=== PATIENT | female | born 1995 | race Caucasian/White ===

== ENCOUNTER 2016-06-30 02:42 | Emergency (ER) | payer OTHER ==
[2016-06-30] MEDS ORDERED: KETOROLAC 60 MG/2 ML VIAL IM STA (03:02)
[2016-06-30] MEDS ORDERED: CYCLOBENZAPRINE 10 MG TABLET PO STA (03:02)
[2016-06-30] MEDS ORDERED: KETOROLAC 60 MG/2 ML VIAL ONE (03:04)
[2016-06-30] MEDS ORDERED: CYCLOBENZAPRINE 10 MG TABLET PO ONE (03:04)
== END 2016-06-30 04:43 | disposition home or self-care (01) ==
DX: M62.830 Muscle spasm of back (principal); M54.5 Low back pain
CPT/HCPCS: 72110; 72202; 96372; 99283; A9270

== ENCOUNTER 2016-11-03 07:16 | Outpatient (CLI) | payer OTHER ==
--- NOTE | 2016-11-03 16:50 | CT Report ---
CT PARANASAL SINUSES WITHOUT CONTRAST: 11/03/2016 CLINICAL INDICATION: Chronic sinusitis. Axial CT images of the paranasal sinuses were obtained without contrast. In accordance with CT protocol optimization, one or more of the following dose reduction techniques w ere utilized for this exam: automated exposure control, adjustment of mA and/or KV based on patient size, or use of iterative reconstructive technique. No previous CT is available for comparison. There is a mucous retention cyst or polyp in the inferior portion of the right maxillary sinus. Othe rwise, the paranasal sinuses are clear. The ostiomeatal units are patent bilaterally. The nasal sep jacquelyn is midline. No osseous destruction is seen. The visualized orbital contents are unremarkable. IMPRESSION: MUCOUS RETENTION CYST OR POLYP IN THE RIGHT MAXILLARY SINUS. JOB #: [id number] EXT JOB #:[id number]
== END 2016-11-03 07:17 | disposition home or self-care (01) ==
LOC: DI 07:16
PROVIDERS: ATTEND Otolaryngology
DX: R93.0 Abnormal findings on diagnostic imaging of skull and head, not elsewhere classified (principal)
CPT/HCPCS: 36415; 70486; 84703; 86803

== ENCOUNTER 2017-05-11 13:10 | Emergency (ER) | payer OTHER ==
[2017-05-11] MEDS ORDERED: LIDOCAINE VISCOUS 2% 15 ML UDC MM STA (13:43)
[2017-05-11] MEDS ORDERED: MAG HYDROX/AL HYDROX/SIMETH 30 ML UDC PO STA (13:43)
[2017-05-11 14:04] LABS: BASOPHILS % (AUTO) 0.3 %; EOSINOPHILS # (AUTO) 0.1 10^3/uL (0.0-0.7); EOSINOPHILS % (AUTO) 0.5 %; HGB - HEMOGLOBIN 14.7 g/dL (12.0-16.0); LYMPHOCYTES # (AUTO) 1.8 10^3/uL (1.5-3.5); LYMPHOCYTES % (AUTO) 16.3 %; MEAN CORPUSCULAR HEMOGLOBIN 28.8 pg (27.0-31.0); MEAN CORPUSCULAR HGB CONC 34.7 g/dL (32.0-36.0); MEAN PLATELET VOLUME 7.9 fL (7.9-10.8); MONOCYTES # (AUTO) 0.5 10^3/uL (0.0-1.0); MONOCYTES % (AUTO) 4.5 %; NEUTROPHILS # (AUTO) 8.5 10^3/uL (1.5-6.6); NEUTROPHILS % (AUTO) 78.4 %; PLT - PLATELET COUNT 272 10^3/uL (130-450); RED BLOOD COUNT 5.09 10^6/uL (4.20-5.40); RED CELL DISTRIBUTION WIDTH 13.4 % (12.0-15.0); WHITE BLOOD COUNT 10.8 x10^3/uL (4.8-10.8)
--- NOTE | 2017-05-11 14:05 | ED Physician Documentation ---
PD HPI ABD PAIN - Stated complaint Stated Complaint: SIDE/ABD PX - Chief complaint Chief Complaint: Abd Pain - History obtained from History obtained from: Patient, Friend - History of Present Illness Timing - onset: Enter time (299), Today Timing - duration: Hours Timing - details: Abrupt onset, Still present, Still present in ED Quality: Aching, Sharp, Pain Location: RUQ Radiation: Upper back Improved by: Laying still Worsened by: Moving, Breathing, Position, Palpation Associated symptoms: Nausea, Vomiting Similar symptoms before: Diagnosis (gastritis) Recently seen: Not recently seen - Additional information Additional information: 31-year-old female who is had a history of gastritis has abdominal pain after eating frequently and last night she had pain that started about 3 AM with severe and radiated to her back.She has some right upper quadrant pain that is worse with inspiration. She has had this happen to her a number of times previously and she has been evaluated by GI. She has had upper and lower GI scoping she has had ultrasound of her gallbladder and she has been diagnosed with gastritis. She was recently moved to the area and has not established care with her new physician. Review of Systems Constitutional: reports: Sweats. denies: Fever Eyes: denies: Decreased vision Ears: denies: Ear pain Nose: denies: Rhinorrhea / runny nose, Congestion Throat: denies: Sore throat Cardiac: reports: Chest pain / pressure. denies: Palpitations Respiratory: denies: Dyspnea, Cough GI: reports: Abdominal Pain, Abdominal Swelling, Nausea. 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 : None HEENT: None Psych: None Musculoskeletal: Chronic back pain Derm: None - Past Surgical History Past Surgical History: Yes General: Other - Present Medications Home Medications: Ambulatory Orders Medication Instructions Recorded Confirmed Cyclobenzaprine [Flexeril] 10 mg PO TID PRN #10 tablet 06/30/16 Ibuprofen 800 mg PO Q8HR 06/30/16 06/30/16 Sucralfate [Carafate] 1 gm PO ACHS #40 tablet 05/11/17 - Allergies Allergies/Adverse Reactions: Allergies Allergy/AdvReac Type Severity Reaction Status Date / Time CRESCENCIO AdvReac Respiratory Uncoded 06/30/16 02:59 KETOPROFENE AdvReac Rash Uncoded 06/30/16 02:59 - Social History Does the pt smoke?: No Smoking Status: Never smoker Does the pt drink ETOH?: No Does the pt have substance abuse?: No - Immunizations Immunizations are current?: Yes - POLST Patient has POLST: No PD ED PE NORMAL - Vitals Vital signs reviewed: Yes (Tachycardic and hypertensive) - General General: Alert and oriented X 3, Well developed/nourished, Other (Patient appears to be in some pain with medical lab director tone and flattened affect and she seems to wince with breathing.) - HEENT HEENT: Atraumatic, PERRL, EOMI, Ears normal - Neck Neck: Supple, no meningeal sign, No bony TTP - Cardiac Cardiac: RRR, No murmur - Respiratory Respiratory: No respiratory distress, Clear bilaterally - Abdomen Abdomen: Soft, Other (Right upper quadrant tenderness to deep palpation specifically under the ribs laterally and in the epigastrium. 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, No motor deficit, No sensory deficit, Normal speech Eye Opening: Spontaneous Motor: Obeys Commands Verbal: Oriented GCS Score: 15 - Psych Psych: Normal mood Results - Vitals Vitals: Vital Signs - 24 hr 05/11/17 05/11/17 13:15 16:58 Temperature 36.7 C Heart Rate 115 H 91 Respiratory 18 20 Rate Blood Pressure 131/86 H 121/69 O2 Saturation 99 98 Oxygen O2 Source Room air - Labs Labs: Laboratory Tests 05/11/17 05/11/17 05/11/17 13:55 13:55 15:30 WBC 10.8 RBC 5.09 Hgb 14.7 Hct 42.2 MCV 83.0 MCH 28.8 MCHC 34.7 RDW 13.4 Plt Count 272 MPV 7.9 Neut # 8.5 H Lymph # 1.8 [place] # 0.5 Eos # 0.1 Baso # 0.0 Absolute Nucleated RBC 0.00 Nucleated RBC % 0.0 Sodium 136 Potassium 3.6 Chloride 105 Carbon Dioxide 24 Anion Gap 7.0 BUN 10 Creatinine 0.6 Estimated GFR (MDRD) 115 Glucose 110 H Calcium 9.6 Total Bilirubin 0.6 AST 22 ALT 13 Alkaline Phosphatase 108 Total Protein 8.5 H Albumin 4.4 Globulin 4.1 Albumin/Globulin Ratio 1.1 Lipase 17 L Urine Color YELLOW Urine Clarity CLEAR Urine pH 6.5 Ur Specific [place] 1.010 Urine Protein NEGATIVE Urine Glucose (UA) NEGATIVE Urine Ketones NEGATIVE Urine Occult Blood MODERATE H Urine Nitrite NEGATIVE Urine Bilirubin NEGATIVE Urine Urobilinogen 0.2 (NORMAL) Ur Leukocyte Esterase NEGATIVE Urine RBC 0-5 Urine WBC 0-3 Ur Squamous Epith Cells FEW Squamous Urine Bacteria None Seen Ur Microscopic Review INDICATED Urine Culture Comments NOT INDICATED Urine HCG, Qual NEGATIVE - Rads (name of study) Gallbladder ultrasound Radiology: Prelim report reviewed (Normal), EMP read indepedently, See rad report Procedures - Bedside sono Bedside sono by EMP: These bedside ultrasound the gallbladder is imaged there are no obvious stones and no pericholecystic fluid. The gallbladder is compressed with the probe resulting in tender and reproduction of the symptoms the patient is experiencing. PD MEDICAL DECISION MAKING - ED course Complexity details: reviewed results, re-evaluated patient, considered differential, d/w patient, d/w family ED course: 31-year-old female is evaluated for abdominal pain that is in the epigastrium and the right upper quadrant. She has had prior ultrasound of the gallbladder and these have been negative. On the bedside ultrasound there is no obvious stone. She does have a tender gallbladder. White blood cell count is normal and formal gallbladder ultrasound is normal as well. The patient is administered a GI cocktail of viscous lidocaine and Mylanta with improvement in her symptoms. I have added in Carafate to her regimen and recommended she take this for at least 10 days and I have recommended that she get a HIDA scan which can be ordered as an outpatient by her primary care doctor. Departure - Departure Disposition: 01 Home, Self Care Clinical Impression: Gastritis Qualifiers: Gastritis type: unspecified gastritis Chronicity: acute Gastritis bleeding: without bleeding Qualified Code(s): K29.00 - Acute gastritis without bleeding Condition: Stable Instructions: ED PUD Vs Gastritis Follow-Up: Wan Fernando DO [Primary Care Provider] - Prescriptions: Sucralfate [Carafate] 1 gm PO ACHS #40 tablet Comments: Today it appears your symptoms are related to your gastritis and there is a question about the function of your gallbladder follow-up with Dr. Fernando and schedule a HIDA scan. Discharge Date/Time: 05/11/17 17:04
[2017-05-11 14:25] LABS: ALBUMIN 4.4 g/dL (3.2-5.5); ALBUMIN/GLOBULIN RATIO 1.1 (1.0-2.2); BILIRUBIN,TOTAL 0.6 mg/dL (0.2-1.0); CALCIUM 9.6 mg/dL (8.5-10.3); CREATININE 0.6 mg/dL (0.4-1.0); TOTAL PROTEIN 8.5 g/dL (6.7-8.2)
[2017-05-11 15:44] LABS: BILIRUBIN,URINE NEGATIVE (NEGATIVE); GLUCOSE, URINE (UA) NEGATIVE (NEGATIVE); KETONES,URINE (UA) NEGATIVE (NEGATIVE); LEUKOCYTE ESTERASE, URINE NEGATIVE (NEGATIVE); NITRITE,URINE NEGATIVE (NEGATIVE); OCCULT BLOOD,URINE MODERATE (NEGATIVE); PH,URINE 6.5 PH (5.0-7.5); PROTEIN,URINE NEGATIVE (NEGATIVE); UROBILINOGEN,URINE 0.2 (NORMAL) E.U./dL (NORMAL)
[2017-05-11 15:47] LABS: CLARITY,URINE CLEAR (CLEAR); HCG UR QUAL NEGATIVE
[2017-05-11 16:20] LABS: BACTERIA,URINE None Seen /HPF (None Seen); RBC,URINE 0-5 /HPF (0-5); SQUAMOUS EPITHELIAL CELL,UR FEW Squamous (<= Few)
[2017-05-11 17:00] VITALS: BP 121/69
--- NOTE | 2017-05-11 18:26 | Ultrasound Report ---
RIGHT UPPER QUADRANT ULTRASOUND: 05/11/2017 CLINICAL INDICATION: Right upper quadrant pain. TECHNIQUE: Real-time scanning was performed with advertising representative static images obtained. FINDINGS: The liver measures 19 cm. Hepatic echogenicity is normal. No intrahepatic biliary dilatation or focal parenchymal lesion is present. The common bile duct measures 4 mm. The gallbladder is normal. The right kidney measures 12.5 cm, and demonstrates no hydronephrosis. No free fluid is present. IMPRESSION: NORMAL RIGHT UPPER QUADRANT ULTRASOUND. TD: 05/11/2017 18:24
== END 2017-05-11 17:04 | disposition home or self-care (01) ==
LOC: ED 13:10
DX: K29.00 Acute gastritis without bleeding (principal)
CPT/HCPCS: 36415; 76705; 80053; 81001; 81025; 83690; 85025; 99283; 99284; A9270; 81003; 87086

== ENCOUNTER 2017-05-26 08:25 | Outpatient (CLI) | payer OTHER ==
[2017-05-26] MEDS ORDERED: SINCALIDE 5 MCG VIAL ONE (09:45)
[2017-05-26] MEDS ORDERED: SINCALIDE 2.2 MCG in SODIUM CHLORIDE 0.9% 50 ML IV ONE (10:22)
--- NOTE | 2017-05-26 16:31 | Nuclear Medicine Report ---
EXAM: HEPATOBILIARY SCAN WITH CCK/KINEVAC ADMINISTRATION EXAM DATE: 05/26/2017 11:34 AM. CLINICAL HISTORY: GASTRO ESOPHAGEAL REFLUX DISEASE W/O ESOPHAGITIS. COMPARISON: 05/11/2017. TECHNIQUE: Following the intravenous administration of 5.1 mCi of Tc99m Mebrofenin, a hepatobiliary s can was done centered on the liver and gallbladder in multiple sequential images and projections. Following the intravenous administration of 2.2 mcg of CCK/ Kinevac over the course of approximately 60 minutes, dynamic imaging was done and the gallbladder ejection fraction was calculated. FINDINGS: Normal extraction of tracer from the blood pool indicating normal hepatocellular function. The liver size and shape is grossly within normal limits. There is activity visualized within the bilateral legs, gallbladder, and small bowel within the first hour. With CCK administration, the gallbladder demonstrates an effective contraction. The gallbladder eject ion fraction is calculated to be 100%, well above the lower limit of normal of 38% for a 60-minute in jection. The patient did not report symptoms after CCK administration. No evidence of enteric reflux into the stomach. No significant collection of tracer remaining in the common bile duct by the end of the study. IMPRESSION: 1. Patent cystic duct. 2. Patent common bile duct. 3. Negative for acute or chronic cholecystitis. 4. No enterogastric bile reflux. 5. Gallbladder ejection fraction of 100%. TIANNAA Referring Provider Line: [phone] SITE ID: [id number]
== END 2017-05-26 08:26 | disposition home or self-care (01) ==
LOC: DI 08:25
DX: K21.9 Gastro-esophageal reflux disease without esophagitis (principal)
CPT/HCPCS: 78227; A9537; J7040

== ENCOUNTER 2017-06-18 08:00 | Outpatient (CLI) | payer OTHER | END 2017-06-18 08:01 | disposition home or self-care (01) | LOC: LAB.R 08:00 | PROVIDERS: ATTEND Internal Medicine Gastroenterology | DX: R19.7 Diarrhea, unspecified (principal); R19.5 Other fecal abnormalities | CPT/HCPCS: 83993 ==

== ENCOUNTER 2017-06-29 17:43 | Outpatient (CLI) | payer OTHER ==
--- NOTE | 2017-06-29 18:40 | XRAY Report ---
EXAM: ABDOMEN RADIOGRAPHY EXAM DATE: 06/29/2017 06:05 PM. CLINICAL HISTORY: Swallowed capsule endoscopy 06/24/2017 and has not passed yet. Diarrhea. COMPARISON: None. TECHNIQUE: 2 views. FINDINGS: Lung Bases: Unremarkable. Bowel Gas Pattern: Within normal limits. No dilated loops or abnormal fluid levels. No excessive stoo l. Free Air: None. Other: No metallic foreign body identified. IMPRESSION: Normal 2-view abdomen x-ray. [facility] Referring Provider Line: [phone] SITE ID: [id number]
== END 2017-06-29 17:44 | disposition home or self-care (01) ==
LOC: DI 17:43
PROVIDERS: ATTEND Internal Medicine Gastroenterology
DX: R19.7 Diarrhea, unspecified (principal)
CPT/HCPCS: 74019

== ENCOUNTER 2018-06-16 10:14 | Emergency (ER) | payer OTHER ==
--- NOTE | 2018-06-16 10:38 | ED Physician Documentation ---
PD HPI HEENT - Stated complaint Stated Complaint: FEVER,SORE THROAT, SOA - Chief complaint Chief Complaint: Heent - History obtained from History obtained from: Patient - History of Present Illness Timing - onset: How many days ago (5) Timing - duration: Days (5) Timing - details: Gradual onset, Still present Location: Right ear, Left ear, Throat Improves: Medication Worsens: Swalllowing Associated symptoms: Fever, Congestion, Rhinorrhea, Swollen nodes, Headache, Cough Similar symptoms before: Diagnosis (strep) Recently seen: Clinic - Additional information Additional information: 32-year-old female has developed a cough congestion fever and sore throat. She has had some muscle aches and pains as well. She was seen by her primary care doctor when this initially occurred diagnosed with a viral infection she has had improvement her symptoms and then worsening again. She has had some wheezing and shortness of breath as well. Review of Systems Constitutional: reports: Fever, Chills, Myalgias Eyes: denies: Decreased vision Ears: reports: Ear pain Nose: reports: Rhinorrhea / runny nose, Congestion Throat: reports: Sore throat Cardiac: denies: Chest pain / pressure, Palpitations Respiratory: reports: Dyspnea, Cough, Wheezing GI: denies: Abdominal Pain, Nausea, Vomiting : denies: Dysuria, Frequency Skin: denies: Rash, Lesions Musculoskeletal: denies: Neck pain, Back pain, Extremity pain PD PAST MEDICAL HISTORY - Past Medical History Past Medical History: No Cardiovascular: None Respiratory: None Neuro: None Endocrine/Autoimmune: None GI: 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 : None HEENT: None Psych: None Musculoskeletal: None Derm: None - Past Surgical History Past Surgical History: Yes General: Other HEENT: Tonsil/Adenoidectomy - Present Medications Home Medications: Ambulatory Orders Medication Instructions Recorded Confirmed Cyclobenzaprine [Flexeril] 10 mg PO TID PRN #10 tablet 06/30/16 Ibuprofen 800 mg PO Q8HR 06/30/16 06/30/16 Sucralfate [Carafate] 1 gm PO ACHS #40 tablet 05/11/17 Albuterol Sulf [Ventolin Hfa 1 - 2 puffs INH Q4HR PRN #1 inhaler 06/16/18 Inhaler] Amox/Clav 875/125 [Augmentin] 1 each PO Q12H #20 tablet 06/16/18 - Allergies Allergies/Adverse Reactions: Allergies Allergy/AdvReac Type Severity Reaction Status Date / Time aspirin Allergy Unknown Verified 06/16/18 10:22 ibuprofen Allergy Unknown Verified 06/16/18 10:22 AULIN AdvReac Respiratory Uncoded 06/30/16 02:59 KETOPROFENE AdvReac Rash Uncoded 06/30/16 02:59 - Social History Does the pt smoke?: No Smoking Status: Never smoker Does the pt drink ETOH?: No Does the pt have substance abuse?: No - Immunizations Immunizations are current?: No - POLST Patient has POLST: No PD ED PE NORMAL - Vitals Vital signs reviewed: Yes (tachy and hypertensive) - General General: Alert and oriented X 3, No acute distress, Well developed/nourished - HEENT HEENT: Atraumatic, PERRL, EOMI, Other (There is inflamation in the left TM with rounding of the landmarks. There is no siginifcant inflamation to the right TM which is retracted. The pharynx is with inflamation to the residual tonsillar tissue on the right side. 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, No motor deficit, No sensory deficit, Normal speech Eye Opening: Spontaneous Motor: Obeys Commands Verbal: Oriented GCS Score: 15 - Psych Psych: Normal mood, Normal affect Results - Vitals Vitals: Vital Signs - 24 hr 06/16/18 10:16 Temperature 36.8 C Heart Rate 102 H Respiratory 18 Rate Blood Pressure 131/83 H O2 Saturation 97 Oxygen O2 Source Room air - Labs Labs: Laboratory Tests 06/16/18 10:30 Group A Strep Rapid Negative PD MEDICAL DECISION MAKING - ED course Complexity details: considered differential, d/w patient ED course: 32-year-old female with a sore throat has a son who was sick with strep previously and she is now sick with sore throat fever and cough has otitis on exam she is administered dexamethasone 10 mg orally and a rapid strep is pending. Departure - Departure Disposition: 01 Home, Self Care Clinical Impression: Otitis media Qualifiers: Otitis media type: suppurative Chronicity: acute Laterality: bilateral Recurrence: not specified as recurrent Spontaneous tympanic membrane rupture: without spontaneous rupture Qualified Code(s): H66.003 - Acute suppurative otitis media without spontaneous rupture of ear drum, bilateral Condition: Stable Instructions: ED Otitis Media Acute Adult Follow-Up: Mana Cedeño MD [Primary Care Provider] - Prescriptions: Albuterol Sulf [Ventolin Hfa Inhaler] 1 - 2 puffs INH Q4HR PRN #1 inhaler PRN Reason: Shortness Of Air/Wheezing Amox/Clav 875/125 [Augmentin] 1 each PO Q12H #20 tablet
[2018-06-16] MEDS ORDERED: DEXAMETHASONE 10 MG/ML VIAL PO STA (11:42)
[2018-06-16 11:51] VITALS: BP 111/78
[2018-06-16] MEDS ORDERED: CHERRY SYRUP 10 ML UDC PO ONE (11:51)
== END 2018-06-16 11:53 | disposition home or self-care (01) ==
LOC: ED 10:14
DX: H66.003 Acute suppurative otitis media without spontaneous rupture of ear drum, bilateral (principal)
CPT/HCPCS: 87070; 87430; 99283; A9270